=== PATIENT | female | born 1935 | race Caucasian/White ===

== ENCOUNTER 2017-01-31 20:16 | Emergency (ER) | payer MEDICARE, BC ==
[~2017-01-31 20:16] MED LIST: ASPIRIN81 M1 PO; FLECAINIDE ACET50 MG PO; FLOVENT DI50 MCG/DIS IH; MECLIZINE HCL12.5 MG PO; PRAVASTATIN SOD40 MG PO; TOPROL XL 50 MG50 M1 PO; TRIAMTERENE-HC1 EACH PO
[2017-01-31] MEDS ORDERED: FLECAINIDE ACET50 MG PO (20:25)
== END 2017-01-31 21:11 | disposition home or self-care (01) ==
LOC: SED 20:16
DX: H11.32 Conjunctival hemorrhage, left eye (principal); I10 Essential (primary) hypertension
CPT/HCPCS: 99283